=== PATIENT | female | born 1955 | race Caucasian/White ===

== ENCOUNTER 2016-08-10 18:16 | Observation (INO) | payer MEDICARE, OTHER ==
[~2016-08-10] VITALS: Ht 157.5 cm; Wt 99.2 kg
[~2016-08-10 18:16] MED LIST: BENZ1TAB7 PO; ESTR1TAB23 PO; FLUO20CA38 PO; LITH300T5 PO; METF500T4 PO; METO-448 PO; PRAV20TA63 PO
[2016-08-11] VITALS (8 sets, daily range): BP systolic 129–164; BP diastolic 62–89; PULSE 52–53; RESP 20; TEMP 98.3; Ht 157.5 cm; Wt 99.2 kg
[2016-08-11] MEDS ORDERED: SOD CHLORIDE 0.9% 500 ML IV STA (00:47)
[2016-08-11 01:01] LABS: ADD SCAN DIFF NO
[2016-08-11 01:04] LABS: BASOPHIL # 0.1 10^3/ul (0.0-0.1); BASOPHILS % 0.8 % (0.0-2.0); EOSINOPHILS # 0.5 10^3/ul (0.0-0.5); EOSINOPHILS % 4.1 % (0.0-7.0); HEMATOCRIT 40.7 % (37.0-47.0); HEMOGLOBIN 13.2 g/dl (12.0-16.0); LYMPHOCYTES # 4.4 10^3/ul (0.8-2.9); LYMPHOCYTES % 34.9 % (15.0-51.0); MEAN CORPUSCULAR HEMOGLOBIN 30.6 pg (29.0-33.0); MEAN CORPUSCULAR HGB CONC 32.4 g/dl (32.0-37.0); MEAN CORPUSCULAR VOLUME 94.4 fl (82.0-101.0); MEAN PLATELET VOLUME 10.4 fl (7.4-10.4); MONOCYTE # 0.6 10^3/ul (0.3-0.9); MONOCYTES % 4.9 % (0.0-11.0); NEUTROPHIL # 6.9 10^3/ul (1.6-7.5); PLATELET COUNT 260 10^3/UL (140-415); RED BLOOD COUNT 4.31 10^6/ul (4.20-5.40); RED CELL DISTRIBUTION WIDTH 13.9 % (11.5-14.5); WHITE BLOOD COUNT 12.6 10^3/ul (4.8-10.8)
[2016-08-11 01:13] LABS: INR 0.85; PROTIME 11.6 Sec (12.2-14.2); PT RATIO 0.9
[2016-08-11 01:20] LABS: ALBUMIN 4.3 g/dl (3.3-4.9); CHLORIDE 103 mmol/L (97-110); POTASSIUM 3.7 mmol/L (3.5-5.1); SODIUM 137 mmol/L (135-144)
--- NOTE | 2016-08-11 01:20 | RADRPT ---
PROCEDURE: XR Chest. CLINICAL INDICATION: Chest pain TECHNIQUE: AP Portable chest. COMPARISON: 05/01/2015 FINDINGS: The cardiomediastinal silhouette is normal. The lungs are clear. The osseous structures are unrema rkable. IMPRESSION: No acute findings. RPTAT: HIKT .Stephen Pandey MD, MD Date Time Electronically viewed and signed by .Stephen Pandey MD, on 08/11/2016 01:19 .T/
[2016-08-11 01:22] LABS: CREATININE 0.76 mg/dl (0.44-1.00)
[2016-08-11 01:23] LABS: ALANINE AMINOTRANSFERASE 21 IU/L (13-69); ALBUMIN/GLOBULIN RATIO 1.48; ALKALINE PHOSPHATASE 67 IU/L (42-121); ANION GAP 13 (8-16); ASPARTATE AMINO TRANSFERASE 15 IU/L (15-46); BILIRUBIN,INDIRECT 0.4 mg/dl (0-1.1); BILIRUBIN,TOTAL 0.4 mg/dl (0.2-1.3); BLOOD UREA NITROGEN 11 mg/dl (7-20); CARBON DIOXIDE 25 mmol/L (21-31); GLUCOSE 125 mg/dl (70-220); TOTAL PROTEIN 7.2 g/dl (6.1-8.1)
[2016-08-11 01:24] LABS: CALCIUM 9.3 mg/dl (8.4-10.2)
[2016-08-11 01:32] LABS: B-TYPE NATRIURETIC PEPTIDE 43 PG/ML (0-125)
[2016-08-11 01:35] LABS: TROPONIN-I < 0.012 ng/ml (0.00-0.12)
--- NOTE | 2016-08-11 02:59 | RADRPT ---
PROCEDURE: CT brain without contrast. CLINICAL INDICATION: Dizziness. TECHNIQUE: CT scan of the brain was performed on a multi-detector high-resolution CT scanner. Co ntiguous axial images were obtained from the skull base to the vertex without intravenous contrast. Coronal and sagittal reformatted images were also obtained. Images were reviewed on the PACS works tation. One or more of the following dose reduction techniques were used: - Automated exposure control. - Adjustment of the mA and/or kV according to patient size. - Use of iterative reconstruction technique. Exam CTD/vol = 43.05 mGy. Total exam DLP = 810.25 mGy-cm. COMPARISON: None. FINDINGS: The ventricles and cortical sulci are prominent consistent with mild age related volume loss. There is mild encephalomalacia within the left left upper lobe cortex. There is no mass effect or midlin e shift. There is no intracranial hemorrhage or abnormal extra-axial collection. There are atherosc lerotic calcifications within bilateral distal internal carotid arteries. The calvarium is intact. There is no evidence of fracture. Visualized paranasal sinuses and mastoi d air cells are clear. IMPRESSION: No acute intracranial abnormality identified. Mild encephalomalacia within the left lateral temporal lobe cortex could be related to old trauma or infarct. Mild age related volume loss. Cerebral atherosclerosis. .Reynaldo Segura MD, Date Time Electronically viewed and signed by .Reynaldo Segura MD, on 08/11/2016 02:59 .T/
--- NOTE | 2016-08-11 05:40 | ERA ---
ER Documentation Chief Complaint Date/Time DATE: 08/11/16 TIME: 05:39 Chief Complaint GENERALIZED WEAKNESS AND DIZZINESS TODAY HPI This is a very pleasant 61-year-old female complains of generalized weakness today along with lightheadedness. Patient has history of coronary issues. Denies any focal neurologic complaints. Denies any nausea vomiting fevers or chills. Patient states she "almost passed out. Multiple times this is happened over the past 2 days. ROS All systems reviewed and are negative except as per history of present illness. Medications Home Meds Reported Medications Metoprolol Tartrate* (Lopressor*) 25 Mg Tab, 25 MG PO BID, #60 TAB 05/01/15 Pravastatin Sodium* (Pravastatin Sodium*) 20 Mg Tablet, 20 MG PO HS, TAB 05/01/15 Benztropine Mesylate* (Benztropine Mesylate*) 1 Mg Tablet, 1 MG PO DAILY, TAB 05/01/15 [place] Carbonate* ([place] Carbonate*) 300 Mg Tablet, 300 MG PO BID, TAB 05/01/15 Fluoxetine Hcl* (Prozac*) 20 Mg Capsule, 20 MG PO DAILY, CAP 05/01/15 Estradiol* (Estrace*) 1 Mg Tablet, 0.5 MG PO DAILY, TAB 05/01/15 Metformin* (Glucophage*) 500 Mg Tab, 500 MG PO DAILY, #30 TAB 05/01/15 Allergies Allergies: Coded Allergies: Penicillins (Verified Allergy, Severe, RASH,SWELLING, 05/01/15) aspirin (Verified Allergy, Severe, RASH,SWELLING, 05/01/15) PMhx/Soc History of Surgery: Yes (HYSTERECTOMY 17 YRS AGO,RT HIP GROWTH REMOVAL,left ear sx) Anesthesia Reaction: No Hx Neurological Disorder: No Hx Respiratory Disorders: Yes Hx Cardiac Disorders: Yes (HTN) Hx Psychiatric Problems: Yes (ANXIETY,BIPOLAR,SCHIZOPHRENIA) Hx Miscellaneous Medical Probl: Yes (diabetes) Hx Alcohol Use: Yes (Hx ETOH use, quit 18 yrs ago) Hx Substance Use: Yes (marijuana for recreation) Hx Tobacco Use: Yes (daily) Smoking Status: Current every day smoker Physical Exam Vitals Vital Signs Date Time Temp Pulse Resp B/P Pulse Ox O2 Delivery O2 Flow Rate FiO2 08/11/16 04:00 65 17 138/70 97 Room Air 08/11/16 03:18 98.3 67 20 129/67 97 Room Air 08/11/16 02:00 64 16 144/62 97 08/10/16 18:18 98.1 89 18 145/76 99 Physical Exam Const: [] Head: Atraumatic Eyes: Normal Conjunctiva ENT: Normal External Ears, Nose and Mouth. Neck: Full range of motion..~ No meningismus. Resp: Clear to auscultation bilaterally Cardio: Regular rate and rhythm, no murmurs Abd: Soft, non tender, non distended. Normal bowel sounds Skin: No petechiae or rashes Back: No midline or flank tenderness Ext: No cyanosis, or edema Neur: Awake and alert Psych: Normal Mood and Affect Result Diagram: 08/11/164308/11/164 Results 24 hrs Laboratory Tests Test 08/11/16 00:44 White Blood Count 12.610^3/ul Red Blood Count 4.3110^6/ul Hemoglobin 13.2g/dl Hematocrit 40.7% Mean Corpuscular Volume 94.4fl Mean Corpuscular Hemoglobin 30.6pg Mean Corpuscular Hemoglobin Concent 32.4g/dl Red Cell Distribution Width 13.9% Platelet Count 39895^3/UL Mean Platelet Volume 10.4fl Neutrophils % 55.0% Lymphocytes % 34.9% Monocytes % 4.9% Eosinophils % 4.1% Basophils % 0.8% Nucleated Red Blood Cells % 0.0/100WBC Neutrophils # 6.910^3/ul Lymphocytes # 4.410^3/ul Monocytes # 0.610^3/ul Eosinophils # 0.510^3/ul Basophils # 0.110^3/ul Nucleated Red Blood Cells # 0.010^3/ul Prothrombin Time 11.6Sec Prothrombin Time Ratio 0.9 INR International Normalized Ratio 0.85 Activated Partial Thromboplast Time 28.0Sec Sodium Level 137mmol/L Potassium Level 3.7mmol/L Chloride Level 103mmol/L Carbon Dioxide Level 25mmol/L Anion Gap 13 Blood Urea Nitrogen 11mg/dl Creatinine 0.76mg/dl Glucose Level 125mg/dl Calcium Level 9.3mg/dl Total Bilirubin 0.4mg/dl Direct Bilirubin 0.00mg/dl Indirect Bilirubin 0.4mg/dl Aspartate Amino Transf (AST/SGOT) 15IU/L Alanine Aminotransferase (ALT/SGPT) 21IU/L Alkaline Phosphatase 67IU/L Troponin I < 0.012ng/ml B-Type Natriuretic Peptide 43PG/ML Total Protein 7.2g/dl Albumin 4.3g/dl Globulin 2.90g/dl Albumin/Globulin Ratio 1.48 Current Medications Medications (Trade) Dose Ordered Sig/Margoth Route PRN Reason Start Time Stop Time Status Last Admin Dose Admin Sodium Chloride (NS) 500 ml @ 500 mls/hr Q1H STAT IV 08/11/16 00:47 08/11/16 01:46 DC 08/11/16 00:52 Procedures/MDM EKG: Rate/Rhythm: Normal Sinus Rhythm QRS, ST, T-waves: No changes consistent w/ acute ischemia Impression: No evidence of ischemia or arrhythmia Chest X-ray 1V Interpreted by me: Soft Tissue: No acute abnormalities Bones: No acute abnormalities Mediastinum/Cardiac Silhouette/Lungs: No acute abnormalities Patient's syncopal symptoms are unstable at this time and require inpatient workup. No evidence of PE or dissection at this time but occult ischemia or fatal dysrhythmia cannot be ruled out. Departure Diagnosis: Primary Impression: Near syncope Condition: Serious EUGENIE BEACHPascual Aug 11, 2016 05:40
[2016-08-11] MEDS ORDERED: GLUCOSE GEL 15 GRAM TUBE PO PRN ×2 (09:00)
[2016-08-11] MEDS ORDERED: ACETAMINOPHEN 325 MG TAB PO PRN (09:00)
[2016-08-11] MEDS ORDERED: LORAZEPAM 2 MG INJ IV PRN (09:00)
[2016-08-11] MEDS ORDERED: DEXTROSE 50% 50 ML SYRINGE IV PRN ×2 (09:00)
[2016-08-11] MEDS ORDERED: ONDANSETRON 4 MG INJ IV PRN (09:00)
[2016-08-11] MEDS ORDERED: NITROGLYCERIN (SL) 0.4 MG TAB SL PRN (09:00)
[2016-08-11] MEDS ORDERED: NACL 0.9% 3 ML SYG IV SCH (09:00)
[2016-08-11] MEDS ORDERED: GLUCAGON 1 MG INJ IM PRN (09:00)
[2016-08-11] MEDS ORDERED: GLUCOSE GEL 15 GRAM TUBE BUCCAL PRN (09:00)
[2016-08-11] MEDS: FLUOXETINE 20 MG CAP PO SCH (09:29)
[2016-08-11] MEDS: metFORMIN 500 MG TAB PO SCH (09:29)
[2016-08-11] MEDS: LITHIUM CARBONATE 300 MG CAP PO SCH ×2 (09:29→22:28)
[2016-08-11] MEDS: METOPROLOL 25 MG TAB PO SCH ×2 (09:30→20:21)
[2016-08-11] MEDS: ENOXAPARIN 40 MG/0.4 ML SYG SC SCH (09:33)
[2016-08-11] MEDS: ASPIRIN 81 MG TAB PO SCH (09:34)
[2016-08-11] MEDS: ESTRADIOL 1 MG TAB PO SCH (10:01)
[2016-08-11] MEDS: BENZTROPINE 1 MG TAB PO SCH (10:01)
[2016-08-11 10:20] LABS: CREATINE KINASE 68 IU/L (23-200)
[2016-08-11 10:28] LABS: CK-MB 1.01 ng/ml (0.0-2.4)
--- NOTE | 2016-08-11 10:30 | HP ---
DATE OF ADMISSION: 08/10/2016 CHIEF COMPLAINT: Dizziness. HISTORY OF PRESENT ILLNESS: The patient is a 61-year-old female with a history of diabetes, hyperte nsion, bipolar disorder, anxiety and schizophrenia, who presented to the emergency department compla ining of dizziness. She said she has been feeling lightheaded and dizzy to the point where she felt she was going to pass out, but she never lost consciousness. She mentioned some vague chest discom fort. Otherwise, no other complaints. In the ER, her vitals were stable. Labs showed a WBC of 12. 6. Otherwise, her basic labs were stable. CT of the head shows mild encephalomalacia which is rela otis to an old infarct or trauma. The patient actually underwent a cardiac catheterization here afte r she had a positive stress test and at that time she did not have any significant coronary artery d isease. REVIEW OF SYSTEMS: A 12-point review of systems was performed and negative except as mentioned in t he HPI. PAST MEDICAL HISTORY: As per HPI. PAST SURGICAL HISTORY: As per HPI. ALLERGIES: NO KNOWN DRUG ALLERGIES. HOME MEDICATIONS: 1. Metoprolol. 2. Pravastatin. 3. . 4. Metformin. 5. Duloxetine. PHYSICAL EXAMINATION: VITAL SIGNS: Stable. GENERAL: No acute distress. She looks slightly anxious, but stable. HEENT: No obvious head deformity. Pupils are reactive to light. Extraocular muscles intact. CARDIOVASCULAR: Regular rate and rhythm. No extra heart sounds. LUNGS: Clear. ABDOMEN: Soft, nontender, nondistended. Positive bowel sounds. EXTREMITIES: No edema. NEUROLOGIC: No focal deficits. LABORATORY DATA: WBC 12.6. Otherwise, basic labs are stable. IMAGING: CT of the head as mentioned in the HPI. IMPRESSION: 1. Near syncope. 2. History of diabetes. 3. History of hypertension. 4. History of bipolar. 5. History of anxiety disorder. 6. Schizophrenia. PLAN: Admit to telemetry unit. We will trend her troponins. Head CT, as mentioned above, did not show any acute abnormality. Note that the patient recently had cardiac catheterization in April of last year without significant coronary artery disease. We will notify Dr. Gabriel, horizontal drill operator, about patient's admission. She will continue to be monitored in the telemetry unit. Further workup and management per clinical course. Dictated By: EUGENIE STEELE/BRAD Conf#: [id number] DID#: [id number]
--- NOTE | 2016-08-11 10:37 | RADRPT ---
Echocardiogram Report Patient Name: REVA ESPINOZA Gender: Female Date: 1955 Study Date: 11-Aug-2016 Senior System Operator: Tato Turner RDCS Location: [facility] Ref. Physician: EUGENIE MCINTYRE Quality: Good Procedures: Transthoracic echocardiogram with complete 2D, M-Mode, and doppler examination. Indications: Near syncope. 2D/M Mode Doppler Measurement Value Normal Ranges Measurement Value Normal Ranges LVIDd 2D 4.7 3.5 - 5.6 cm AV Peak Werner 1.2 m/sec LVIDs 2D 2.1 2.1 - 4.1 cm AV Peak PG 6.2 mmHg LVPWd 2D 1.0 0.6 - 1.1 cm LVOT Peak Werner 0.9 m/sec IVSd 2D 1.1 0.6 - 1.1 cm LVOT Peak PG 3.1 mmHg AoR Diam 2D 2.5 2.0 - 3.7 cm MV E Peak Werner 0.8 m/sec EDV 2D 104.3 cm3 MV A Peak Werner 0.7 m/sec ESV 2D 9.0 cm3 MV E/A 1.1 LA Dimen 2D 3.1 2.3 - 4.0 cm MV Decel Time 220 msec MV Decel Walker 4 MV E/A 1.1 TR Peak Werner 2.5 m/sec TR Peak PG 24.2 mmHg RVSP 27.0 mmHg Findings Left Ventricle: Normal left ventricular systolic function. Normal left ventricular cavity size. Mild concentric left ventricular hypertrophy. Ejection fraction is visually estimated at 65 %. Right Ventricle: Normal right ventricular size. Normal right ventricular systolic function. Left Atrium: The left atrium is normal in size. Right Atrium: The right atrium is normal in size. Mitral Valve: Normal appearance and function of the mitral valve with trace physiologic regurgitation. Aortic Valve: Normal appearance of the aortic valve. No significant aortic stenosis or insufficiency. Tricuspid Valve: Normal appearance of the tricuspid valve. Estimated peak PA systolic pressure 27 mmHg. There is trace tricuspid regurgitation. Pulmonic Valve: Pulmonic valve not well visualized. Pericardium: Normal pericardium with no significant pericardial effusion. Aorta: Normal aortic root. IVC: Normal size and normal respiratory collapse consistent with normal right atrial pressure. Conclusions 1.Normal left ventricular systolic function. Normal left ventricular cavity size. Mild concentric left ventricular hypertrophy. Ejection fraction is visually estimated at 65 %. 2.Normal appearance and function of the mitral valve with trace physiologic regurgitation. 3.Normal appearance of the aortic valve. No significant aortic stenosis or insufficiency. 4.Normal appearance of the tricuspid valve. Estimated peak PA systolic pressure 27 mmHg. There is trace tricuspid regurgitation. Electronically Signed By: William Simons 11-Aug-2016 10:36:29 -8500 Patient Name: REVA ESPINOZA Study Date: 11-Aug-2016 [id number]
[2016-08-11 10:41] LABS: TROPONIN-I < 0.012 ng/ml (0.00-0.12)
[2016-08-11] MEDS: INSULIN ASPART [NOVOLOG] 3 ML PEN SC SCH ×3 (12:59→20:15)
--- NOTE | 2016-08-11 15:22 | PN ---
Date/Time of Note Date/Time of Note DATE: 08/11/16 TIME: 15:20 Assessment/Plan VTE Prophylaxis VTE Prophylaxis Intervention: LMWH Lines/Catheters IV [facility] [place] Assessment/Plan Chief Complaint/Hosp Course Assessment and plan 1. Near syncope. Await carotid Doppler of neck. Follow-up on orthostatic blood pressures. Of note CT scan of the brain should no acute intracranial abnormality identified. There was seen mild encephalomalacia within the left lateral temporal lobe cortex that could be related to old trauma or infarct 2. History of psych disorder (schizophrenia/anxiety/bipolar). Continue on Prozac and lithium 3. Essential hypertension. Continue on antihypertensives and adjust as needed 4. Diabetes. Continue insulin regimen. 5. Dyslipidemia. Continue on statin medication Disposition and plan: Follow up on carotid Doppler study. Discharge when medically stable Discussed and care of Dr. Lara Problems: Subjective 24 Hr Interval Summary Free Text/Dictation No apparent distress noted at this time Exam/Review of Systems Vital Signs Vitals Vital Signs Date Time Temp Pulse Resp B/P Pulse Ox O2 Delivery O2 Flow Rate FiO2 08/11/16 12:46 97.5 57 20 129/89 96 08/11/16 11:42 Room Air Intake and Output 08/10/16 08/10/16 08/11/16 14:59 22:59 06:59 Intake Total 500 ml Balance 500 ml Exam General: No acute signs or symptoms of distress Eyes: pupils equal round, Anicteric sclera Neck, no JVD Cardiac: S1, S2 auscultated, regular rhythm and rate Pulmonary: No coarse rhonchi or breathing auscultated GI: Abdomen soft nontender nondistended, bowel sounds active Extremities: No edema bilateral lower extremities Skin: Clean dry and intact Neurologic: Alert to person place and time and situation Results Result Diagram: 08/11/16 0044 08/11/16 0044 Results 24 hrs Laboratory Tests Test 08/11/16 00:44 08/11/16 09:28 08/11/16 13:06 White Blood Count 12.6 H Red Blood Count 4.31 Hemoglobin 13.2 Hematocrit 40.7 Mean Corpuscular Volume 94.4 Mean Corpuscular Hemoglobin 30.6 Mean Corpuscular Hemoglobin Concent 32.4 Red Cell Distribution Width 13.9 Platelet Count 260 Mean Platelet Volume 10.4 Neutrophils % 55.0 Lymphocytes % 34.9 Monocytes % 4.9 Eosinophils % 4.1 Basophils % 0.8 Nucleated Red Blood Cells % 0.0 Neutrophils # 6.9 Lymphocytes # 4.4 H Monocytes # 0.6 Eosinophils # 0.5 Basophils # 0.1 Nucleated Red Blood Cells # 0.0 Prothrombin Time 11.6 L Prothrombin Time Ratio 0.9 INR International Normalized Ratio 0.85 Activated Partial Thromboplast Time 28.0 Sodium Level 137 Potassium Level 3.7 Chloride Level 103 Carbon Dioxide Level 25 Anion Gap 13 Blood Urea Nitrogen 11 Creatinine 0.76 Glucose Level 125 Calcium Level 9.3 Total Bilirubin 0.4 Direct Bilirubin 0.00 Indirect Bilirubin 0.4 Aspartate Amino Transf (AST/SGOT) 15 Alanine Aminotransferase (ALT/SGPT) 21 Alkaline Phosphatase 67 Troponin I < 0.012 < 0.012 B-Type Natriuretic Peptide 43 Total Protein 7.2 Albumin 4.3 Globulin 2.90 Albumin/Globulin Ratio 1.48 Creatine Kinase 68 Creatine Kinase Index 1.5 Creatinine Kinase MB (Mass) 1.01 Bedside Glucose 104 Medications Medications Current Medications Lorazepam (Ativan) 0.5 mg Q6H PRN IV ANXIETY; Start 08/11/16 at 09:00 Ondansetron HCl (Zofran Inj) 4 mg Q6H PRN IV NAUSEA AND/OR VOMITING; Start at 09:00 Aspirin (Aspirin) 81 mg DAILY PO Last administered on 08/11/16 09:34; Admin Dose 81 MG; Start 08/11/16 at 09:00 Nitroglycerin (Nitroglycerin (Sl Tab) 0.4 Mg) 1 tab Q5M PRN SL CHEST PAIN; Start 08/11/16 at 09:00 Acetaminophen (Tylenol Tab) 650 mg Q6H PRN PO PAIN LEVEL 1-3 OR FEVER; Start at 09:00 Enoxaparin Sodium (Lovenox) 40 mg DAILY SC Last administered on 08/11/16 09:33 ; Admin Dose 40 MG; Start 08/11/16 at 09:00 Benztropine Mesylate (Cogentin) 1 mg DAILY PO Last administered on 08/11/16 10 :01; Admin Dose 1 MG; Start 08/11/16 at 09:00 Estradiol (Estrace) 0.5 mg DAILY PO Last administered on 08/11/16 10:01; Admin Dose 0.5 MG; Start 08/11/16 at 09:00 Fluoxetine HCl (Prozac) 20 mg DAILY PO Last administered on 08/11/16 09:29; Admin Dose 20 MG; Start 08/11/16 at 09:00 [place] Carbonate ([place] Carbonate) 300 mg BID PO Last administered on 09:29; Admin Dose 300 MG; Start 08/11/16 at 09:00 Metformin HCl (Glucophage) 500 mg DAILY PO Last administered on 08/11/16 09:29 ; Admin Dose 500 MG; Start 08/11/16 at 09:00 Metoprolol Tartrate (Lopressor) 25 mg BID PO Last administered on 08/11/16 09: 30; Admin Dose 25 MG; Start 08/11/16 at 09:00 Atorvastatin Calcium (Lipitor) 10 mg HS PO ; Start 08/11/16 at 21:00 Miscellaneous Information 1 ea NOTE XX ; Start 08/11/16 at 09:00 Glucose (Glutose) 15 gm Q15M PRN PO DECREASED GLUCOSE; Start 08/11/16 at 09:00 Glucose (Glutose) 22.5 gm Q15M PRN PO DECREASED GLUCOSE; Start 08/11/16 at 09: 00 Dextrose (D50w Syringe) 25 ml Q15M PRN IV DECREASED GLUCOSE; Start 08/11/16 at 09:00 Dextrose (D50w Syringe) 50 ml Q15M PRN IV DECREASED GLUCOSE; Start 08/11/16 at 09:00 Glucagon (Glucagen) 1 mg Q15M PRN IM DECREASED GLUCOSE; Start 08/11/16 at 09:00 Glucose (Glutose) 15 gm Q15M PRN BUCCAL DECREASED GLUCOSE; Start 08/11/16 at 09 :00 ZAHIDA MOTA Aug 11, 2016 15:22
[2016-08-11 16:46] LABS: CREATINE KINASE 75 IU/L (23-200)
--- NOTE | 2016-08-11 16:55 | RADRPT ---
PROCEDURE: US Carotids. CLINICAL INDICATION: Syncope TECHNIQUE: Multiple sonographic of the carotid arteries were obtained utilizing walter scale imaging . Color and Doppler imaging was performed. The images were reviewed on a PACS workstation. COMPARISON: No prior studies are available for comparison. FINDINGS: Location Right Left CCA 63 cm/sec 88 cm/sec Prox ICA 68 cm/sec 76 cm/sec Mid ICA 72 cm/sec 75 cm/sec Dist ICA 70 cm/sec 73 cm/sec ECA 106 cm/sec 117 cm/sec ICA/CCA 1.2 1.2 Antegrade flow is seen within the vertebral arteries bilaterally. No significant plaque is seen with in the carotid system bilaterally. No hemodynamically significant stenosis or occlusion is identifi ed. Intimal wall thickening is present in the bilateral common carotid arteries measuring up to 1.4 mm. IMPRESSION: 1. No evidence for hemodynamically significant stenosis - validated velocity measurements with angio graphic measurements, velocity criteria are extrapolated from diameter data as defined by the Societ y of Radiologists in Ultrasound Consensus Conference Radiology 2003; 229;340-346. This study does i ndirectly reference the measurement of the distal ICA diameter as the denominator for stenosis measu rement. 2. Antegrade flow seen within the vertebral arteries bilaterally. 3. Bilateral intimal wall thickening. SRU Consensus Conference Criteria for the Diagnosis of Carotid Artery Stenosis Degree of Stenosis, % ICA PSV, cm/sec Plaque Estimate, % ICA/CCA PSV Ratio Normal <125 None <2.0 <50 <125 <50 <2.0 50 69 125-230 >50 2.0-4.0 >70 but less than near occlusion >230 >50 <4.0 Near occlusion High, low, or undetectable Visible Variable Total occlusion Undetectable Visible, no detectable lumen Not applicable *Cartoid artery stenosis: wlater-scale and Doppler US diagnosis. Society of Radiologists in Ultrasound Consensus Conference. Radiology 2003; 229: 340-346 RPTAT: BB .Scottie Murguia MD, Date Time Electronically viewed and signed by .Scottie Murguia MD, MD on 08/11/2016 16:55 .A/
[2016-08-11 16:56] LABS: CK-MB 1.09 ng/ml (0.0-2.4)
[2016-08-11 17:05] LABS: TROPONIN-I < 0.012 ng/ml (0.00-0.12)
[2016-08-11] MEDS ORDERED: ATORVASTATIN 10 MG TAB PO SCH (21:00)
[2016-08-12] VITALS (10 sets, daily range): BP systolic 127–140; BP diastolic 55–88; PULSE 45–56; RESP 17–20
[2016-08-12 07:28] LABS: ADD SCAN DIFF NO
[2016-08-12 07:31] LABS: BASOPHIL # 0.1 10^3/ul (0.0-0.1); BASOPHILS % 0.8 % (0.0-2.0); EOSINOPHILS # 0.4 10^3/ul (0.0-0.5); EOSINOPHILS % 3.4 % (0.0-7.0); HEMATOCRIT 41.6 % (37.0-47.0); HEMOGLOBIN 13.8 g/dl (12.0-16.0); LYMPHOCYTES # 3.4 10^3/ul (0.8-2.9); LYMPHOCYTES % 31.7 % (15.0-51.0); MEAN CORPUSCULAR HEMOGLOBIN 31.4 pg (29.0-33.0); MEAN CORPUSCULAR HGB CONC 33.2 g/dl (32.0-37.0); MEAN CORPUSCULAR VOLUME 94.8 fl (82.0-101.0); MEAN PLATELET VOLUME 10.6 fl (7.4-10.4); MONOCYTE # 0.6 10^3/ul (0.3-0.9); MONOCYTES % 5.7 % (0.0-11.0); NEUTROPHIL # 6.2 10^3/ul (1.6-7.5); NEUTROPHILS % 58.1 % (39.0-77.0); PLATELET COUNT 296 10^3/UL (140-415); RED BLOOD COUNT 4.39 10^6/ul (4.20-5.40); RED CELL DISTRIBUTION WIDTH 13.5 % (11.5-14.5); WHITE BLOOD COUNT 10.7 10^3/ul (4.8-10.8)
[2016-08-12] MEDS: INSULIN ASPART [NOVOLOG] 3 ML PEN SC SCH ×3 (07:42→18:05)
[2016-08-12 07:54] LABS: POTASSIUM 4.1 mmol/L (3.5-5.1)
[2016-08-12 07:56] LABS: ALBUMIN/GLOBULIN RATIO 1.21; BILIRUBIN,INDIRECT 0.9 mg/dl (0-1.1); BILIRUBIN,TOTAL 0.9 mg/dl (0.2-1.3); CREATININE 0.77 mg/dl (0.44-1.00); TOTAL PROTEIN 7.3 g/dl (6.1-8.1)
[2016-08-12 07:57] LABS: CALCIUM 9.6 mg/dl (8.4-10.2); MAGNESIUM 2.1 mg/dl (1.7-2.5)
[2016-08-12 07:58] LABS: CHOL/HDL RATIO 3.7 RATIO
[2016-08-12] MEDS: ESTRADIOL 1 MG TAB PO SCH (08:19)
[2016-08-12] MEDS: metFORMIN 500 MG TAB PO SCH (08:20)
[2016-08-12] MEDS: LITHIUM CARBONATE 300 MG CAP PO SCH (08:20)
[2016-08-12] MEDS: ASPIRIN 81 MG TAB PO SCH (08:21)
[2016-08-12] MEDS: FLUOXETINE 20 MG CAP PO SCH (08:21)
[2016-08-12] MEDS: BENZTROPINE 1 MG TAB PO SCH (08:21)
[2016-08-12] MEDS: ENOXAPARIN 40 MG/0.4 ML SYG SC SCH (08:22)
[2016-08-12] MEDS: METOPROLOL 25 MG TAB PO SCH (08:24)
[2016-08-12 08:28] LABS: THYROID STIMULATING HORMONE 2.39 MIU/L (0.465-4.680)
--- NOTE | 2016-08-12 08:52 | CONS ---
DATE OF ADMISSION: 08/11/2016 DATE OF CONSULTATION: 08/11/2016 CARDIOLOGY CONSULTATION REFERRING PHYSICIAN: Dr. Gabriel. REASON FOR EVALUATION: Dizziness, near syncope. HISTORY OF PRESENT ILLNESS: Ms. Joaquin is a 61-year-old woman with hypertension, dyslipidemia, hi story of diabetes, history of anxiety, schizoaffective disorder, history of recent positive stress t est with negative left heart cath, who comes to the hospital now for evaluation of dizziness and pepito r syncope. The patient said that she was standing in the middle of the day and she felt dizzy and s he felt like she was going to pass out and she came to the hospital to be evaluated. The patient do es not have any chest pain at this point. She did not rule in for ischemia. She is in sinus rhythm on EKG. For now, there is no obvious evidence of cardiac instability. There is no tachyarrhythmia or bradyarrhythmia noted. Conservative therapy will be expected. The patient had a 2-D echo which showed preserved ejection fraction. She had a negative stress test. I think conservative th erapy is expected and I think that there is no clear indication that would point to cardiac cause of dizziness. PAST MEDICAL HISTORY: 1. Hypertension. 2. Dyslipidemia. 3. Bipolar disease. 4. Schizoaffective disorder. 5. History of positive stress test with negative left heart cath in 04/2016. ALLERGIES: NO KNOWN DRUG ALLERGIES. SOCIAL HISTORY: The patient does not smoke. The patient has a history of . Does not drink. Does not use drugs. FAMILY HISTORY: Negative for sudden cardiac or premature coronary artery disease. MEDICATIONS: Now include: 1. Lipitor 10 mg once a day. 2. Insulin on a sliding scale. 3. Lorazepam 0.5 mg . 4. Aspirin 81 mg . 5. Acetaminophen. 6. Estradiol. 7. Fluoxetine. 8. . 9. [place] carbonate. REVIEW OF SYSTEMS: CONSTITUTIONAL: No fevers, no chills. Dizziness as described. HEENT: No changes in vision or hearing. CARDIAC: No chest pain reported now. RESPIRATORY: No shortness of breath. GASTROINTESTINAL: No nausea, vomiting, diarrhea, constipation. GENITOURINARY: No dysuria, hematuria. NEUROLOGIC: . PSYCHIATRIC: History of significant psychiatric illness. PHYSICAL EXAMINATION: VITAL SIGNS: Temperature is , heart rate 75, blood pressure . GENERAL: She is a well-nourished woman in no acute distress, alert and oriented x3, somewhat aware of her condition. HEAD: Normocephalic, atraumatic. Eyes anicteric. NECK: Supple. JVD 7 to 8 cm. There is no lymphadenopathy or thyromegaly. HEART: Regular. Soft murmur heard at mid chest; changes with respiration. PMI is minimally displaced. There is no S3. LUNGS: Coarse at the bases. ABDOMEN: Distended. Bowel sounds are present. There is no hepatosplenomegaly. GENITOURINARY: Exam is intact. EXTREMITIES: Show no evidence of clubbing, cyanosis, edema. ELECTROCARDIOGRAM: Read by me shows sinus rhythm with some nonspecific ST-T changes. LABORATORY DATA: White blood cell count is 12.6, hemoglobin 13.2, platelets 260. INR is 0.9. Crea tinine is 0.76. Troponin is negative at 0.01. ASSESSMENT AND PLAN: 1. Dizziness. The patient does describe dizziness. There is no clear cardiac source appreciated. No obvious tachyarrhythmia or bradyarrhythmia. For now, conservative therapy is expected. I would consider evaluation for psychiatric cause of dizziness. 2. Hypertension. Blood pressure well optimized. Continue medical therapy. 3. Coronary artery disease. The patient has nonobstructive coronary artery disease. Medical thera py is expected. 4. Schizoaffective disorder. Continue therapy per primary team. 5. Leukocytosis. The patient's white blood cells are slightly elevated. Will defer to primary tea m for evaluation. I would like to thank Dr. Gabriel for referring this patient for my evaluation. Dictated By: YAYA ANDERSON MD ML/NTS Conf#: [id number] DID#: [id number] CC: EUGENIE MCINTYRE MD;*EndCC*
[2016-08-12] MEDS ORDERED: MECL-77 PO (15:06)
[2016-08-12] MEDS ORDERED: METO-448 PO (15:06)
--- NOTE | 2016-08-12 15:13 | PDOCDIS ---
Discharge Instructions DIAGNOSIS Discharge Diagnosis: 1. near syncope 2. cephalgia 3. suspect vertigo CONDITION Patient Condition: Stable HOME CARE INSTRUCTIONS: Diet Instructions: Reduced SodiumSpecial Diet: diabetic FOLLOW UP/APPOINTMENTS Appointments 1. Follow up with Dr. Gregor Gabriel in one week ZAHIDA MOTA Aug 12, 2016 15:13
--- NOTE | 2016-08-12 17:22 | CONS ---
Date/Time of Note Date/Time of Note DATE: 08/12/16 TIME: 17:15 Assessment/Plan Assessment/Plan Chief Complaint/Hosp Course IMp: 1.Near syncope-NL EF by echo this admit 2.HTN 3.biy-lgt-qnjccjzqxiye by cath 05/01 4.Psych d/o 5. Bradycardia-NL TSH this admit Recc: -Tele -D/c BB given bradycardia -continue statin -Continue asa -Start ACEI and follow BP Problems: Consultation Date/Type/Reason Admit Date/Time Aug 11, 2016 at 05:45 Initial Consult Date 08/11/2016 Type of Consultation: Cardiology Reason for Consultation dizziness/HTN Referring Provider: FRANCISCA OROPEZA Exam/Review of Systems Vital Signs Vitals Vital Signs Date Time Temp Pulse Resp B/P Pulse Ox O2 Delivery O2 Flow Rate FiO2 08/12/16 16:14 56 08/12/16 16:09 97.9 17 136/84 97 08/11/16 11:42 Room Air Intake and Output 08/11/16 08/11/16 08/12/16 15:00 23:00 07:00 Intake Total 700 ml Balance 700 ml Exam Review of Systems: CONSTITUTIONAL: No fevers, chills. PULMONARY: No sob CARDIOVASCULAR: No chest pain/palpitations GASTROINTESTINAL: No nausea/vomiting. GENITOURINARY: No hematuria/dysuria. MUSCULOSKELETAL: No myagias/arthalgias. PSYCHIATRIC: The patient denies depression. NEUROLOGIC: No weakness Constitutional: alert, oriented Psych: no complaints Head: normocephalic ENMT: mucosa pink and moist Neck: jvd (8 cm water), supple Respiratory: clear to auscultation Cardiovascular: regular rate and rhythm Gastrointestinal: non-tender, soft Musculoskeletal: muscle tone (normal) Extremities: edema (none) Neurological: other (No focal deficits) Results Result Diagram: 08/12/16 0645 08/12/16 0645 Results 24 hrs Laboratory Tests Test 08/11/16 20:14 08/12/16 06:44 08/12/16 06:45 08/12/16 07:35 Bedside Glucose 105 121 Hemoglobin A1c 6.4 H White Blood Count 10.7 Red Blood Count 4.39 Hemoglobin 13.8 Hematocrit 41.6 Mean Corpuscular Volume 94.8 Mean Corpuscular Hemoglobin 31.4 Mean Corpuscular Hemoglobin Concent 33.2 Red Cell Distribution Width 13.5 Platelet Count 296 Mean Platelet Volume 10.6 H Neutrophils % 58.1 Lymphocytes % 31.7 Monocytes % 5.7 Eosinophils % 3.4 Basophils % 0.8 Nucleated Red Blood Cells % 0.0 Neutrophils # 6.2 Lymphocytes # 3.4 H Monocytes # 0.6 Eosinophils # 0.4 Basophils # 0.1 Nucleated Red Blood Cells # 0.0 Sodium Level 137 Potassium Level 4.1 Chloride Level 106 Carbon Dioxide Level 25 Anion Gap 10 Blood Urea Nitrogen 10 Creatinine 0.77 Glucose Level 130 Calcium Level 9.6 Magnesium Level 2.1 Total Bilirubin 0.9 Direct Bilirubin 0.00 Indirect Bilirubin 0.9 Aspartate Amino Transf (AST/SGOT) 19 Alanine Aminotransferase (ALT/SGPT) 27 Alkaline Phosphatase 57 Total Protein 7.3 Albumin 4.0 Globulin 3.30 H Albumin/Globulin Ratio 1.21 Triglycerides Level 187 H Cholesterol Level 174 LDL Cholesterol, Calculated 91 HDL Cholesterol 46 Cholesterol/HDL Ratio 3.7 Thyroid Stimulating Hormone (TSH) 2.390 Test 08/12/16 11:30 Bedside Glucose 94 Medications Medications Current Medications Lorazepam (Ativan) 0.5 mg Q6H PRN IV ANXIETY; Start 08/11/16 at 09:00 Ondansetron HCl (Zofran Inj) 4 mg Q6H PRN IV NAUSEA AND/OR VOMITING; Start at 09:00 Aspirin (Aspirin) 81 mg DAILY PO Last administered on 08/12/16 08:21; Admin Dose 81 MG; Start 08/11/16 at 09:00 Nitroglycerin (Nitroglycerin (Sl Tab) 0.4 Mg) 1 tab Q5M PRN SL CHEST PAIN; Start 08/11/16 at 09:00 Acetaminophen (Tylenol Tab) 650 mg Q6H PRN PO PAIN LEVEL 1-3 OR FEVER; Start at 09:00 Enoxaparin Sodium (Lovenox) 40 mg DAILY SC Last administered on 08/12/16 08:22 ; Admin Dose 40 MG; Start 08/11/16 at 09:00 Benztropine Mesylate (Cogentin) 1 mg DAILY PO Last administered on 08/12/16 08 :21; Admin Dose 1 MG; Start 08/11/16 at 09:00 Estradiol (Estrace) 0.5 mg DAILY PO Last administered on 08/12/16 08:19; Admin Dose 0.5 MG; Start 08/11/16 at 09:00 Fluoxetine HCl (Prozac) 20 mg DAILY PO Last administered on 08/12/16 08:21; Admin Dose 20 MG; Start 08/11/16 at 09:00 [place] Carbonate ([place] Carbonate) 300 mg BID PO Last administered on 08:20; Admin Dose 300 MG; Start 08/11/16 at 09:00 Metformin HCl (Glucophage) 500 mg DAILY PO Last administered on 08/12/16 08:20 ; Admin Dose 500 MG; Start 08/11/16 at 09:00 Metoprolol Tartrate (Lopressor) 25 mg BID PO Last administered on 08/11/16 20: 21; Admin Dose 25 MG; Start 08/11/16 at 09:00 Atorvastatin Calcium (Lipitor) 10 mg HS PO Last administered on 08/11/16 20:21 ; Admin Dose 10 MG; Start 08/11/16 at 21:00 Miscellaneous Information 1 ea NOTE XX ; Start 08/11/16 at 09:00 Glucose (Glutose) 15 gm Q15M PRN PO DECREASED GLUCOSE; Start 08/11/16 at 09:00 Glucose (Glutose) 22.5 gm Q15M PRN PO DECREASED GLUCOSE; Start 08/11/16 at 09: 00 Dextrose (D50w Syringe) 25 ml Q15M PRN IV DECREASED GLUCOSE; Start 08/11/16 at 09:00 Dextrose (D50w Syringe) 50 ml Q15M PRN IV DECREASED GLUCOSE; Start 08/11/16 at 09:00 Glucagon (Glucagen) 1 mg Q15M PRN IM DECREASED GLUCOSE; Start 08/11/16 at 09:00 Glucose (Glutose) 15 gm Q15M PRN BUCCAL DECREASED GLUCOSE; Start 08/11/16 at 09 :00 FLORES SALAS Aug 12, 2016 17:22
[2016-08-12] MEDS ORDERED: BENAZEPRIL 10 MG TAB PO SCH (21:00)
--- NOTE | 2016-08-21 02:37 | DS ---
DATE OF ADMISSION: 08/11/2016 DATE OF DISCHARGE: 08/12/2016 CONSULTANTS: 1. Dr. Gregor Gabriel 2. Dr. William Simons DISCHARGE DIAGNOSES: 1. Reported near syncope. 2. History of psychiatric disorder. 3. Essential hypertension. 4. History of diabetes. 5. History of dyslipidemia. 6. History of coronary artery disease. HOSPITAL COURSE: This is a 61-year-old female with past medical history of diabetes and hypertensio n, bipolar disorder, anxiety, schizophrenia and came to [facility] due to reports of dizziness. The patient did report she had been feeling lightheaded and dizzy to the point where she was going to pass out but never lost consciousness. She did report also some vague chest pain b ut otherwise no complaints. She did have a CT scan of her head that did show some mild encephalomal acia likely related to old infarct or trauma. She actually did recently undergo a cardiac catheteri zation and had a positive stress test, and for this issue, she was also seen by a packing machine tender. She did have her serial troponins drawn which were all essentially negative. She was optimized on her cardiovascular medications. She did have a carotid Doppler study also done that showed no evidence for hemodynamically significant stenosis. The patient did during her course of stay improve. Likel y no other syncope. We did advise the patient about precautions about orthostatic hypotension. Aft er review by packing machine tender, she was cleared for discharge from their standpoint. No further cardiac intervention will be needed. She was otherwise optimized medically. She was noted with some bradyc ardia but was asymptomatic with this. The patient was continued on her Prozac and lithium for her p sych disorder and antihypertensives for her hypertension with advice for her to monitor for hypotens ion, which may have led to her lightheadedness. She was also resumed on her insulin for diabetes an d statin medication for dyslipidemia. During her course of stay, she did improve. The plan of care was discussed with patient, and patient did verbalize her understanding. On the day of discharge, the patient was in stable condition. Discharge physical exam and vital signs are stable. CONDITION: Stable. DISCHARGE PLAN: 1. Diet is reduced sodium and diabetic. 2. The patient to follow up with Dr. Gregor Gabriel in a week. DISCHARGE MEDICATIONS: 1. Meclizine 25 mg p.o. t.i.d. as needed for dizziness. 2. Lopressor 25 mg p.o. daily. 3. Benztropine mesylate 1 mg p.o. daily. 4. Estradiol 0.5 mg p.o. daily. 5. Prozac 20 mg p.o. daily. 6. Vineyard 300 mg p.o. b.i.d. 7. Metformin 500 mg p.o. daily. 8. Pravastatin sodium 10 mg p.o. at bedtime. DISCHARGE PROCESS TIME: 40 minutes. Discussed plan of care with Dr. Lara. Dictated By: ZAHIDA MOTA NP for RADHA GRIJALVA/BRAD Conf#: [id number] DID#: [id number]
== END 2016-08-12 18:30 | disposition home or self-care (01) ==
LOC: E/R 18:16 → MS4 08-11 05:45
PROVIDERS: ADMIT Internal Medicine; ATTEND Internal Medicine
DX: R55 Syncope and collapse (principal); I10 Essential (primary) hypertension; F31.9 Bipolar disorder, unspecified; F41.9 Anxiety disorder, unspecified; F20.9 Schizophrenia, unspecified; E11.9 Type 2 diabetes mellitus without complications; Z79.4 Long term (current) use of insulin; I25.10 Atherosclerotic heart disease of native coronary artery without angina pectoris; E78.5 Hyperlipidemia, unspecified; F17.200 Nicotine dependence, unspecified, uncomplicated; Z90.710 Acquired absence of both cervix and uterus; Z88.0 Allergy status to penicillin; Z88.6 Allergy status to analgesic agent
CPT/HCPCS: 36415; 70450; 71010; 80053; 80061; 82550; 82553; 82962; 83036; 83735; 83880; 84443; 84484; 85025; 85610; 85730; 93005; 93306; 93880; 96360; 96361; 96372; 99285; G0378; G8978; G8979; G8980; J1650; J1815; J7040